=== PATIENT | female | born 1970 | race African-American/Black ===

== ENCOUNTER 2016-09-21 05:59 | Day surgery (SDC) | payer BC ==
[~2016-09-21] VITALS: Ht 172.7 cm; Wt 71.6 kg
[~2016-09-21 05:59] MED LIST: MOBIC7.5 MG PO
[2016-09-21 06:40] LABS: EOSINOPHIL (%) 1.3 % (0-5); EOSINOPHIL COUNT 0.1 K/uL (0-0.3); HEMATOCRIT 37.5 % (36.0-46.0); IMMATURE GRANULOCYTE (%) 0.2 % (0.0-0.7); IMMATURE GRANULOCYTE COUNT 0.1 K/uL; LYMPHOCYTE COUNT 1.2 K/uL (1.0-2.8); MCH 27.6 PG (29.0-34.0); MCHC 33.6 G/DL (30.0-36.0); MCV 82.2 FL (83-99); MEAN PLAT.VOLUME 10.2 uM^3 (9.5-12.4); MONOCYTE (%) 7.2 % (3-12); MONOCYTE COUNT 0.4 K/uL (0-0.8); NEUTROPHIL (%) 71.7 % (45-76); NEUTROPHIL COUNT 4.4 K/uL (1.8-6.4); PLATELET COUNT 221 K/uL (156-360); RBC DIS.WIDTH-CV 13.5 % (11.8-14.6); RBC DIS.WIDTH-SD 39.5 % (39-53); RED BLOOD COUNT 4.56 M/uL (3.80-5.20); WHITE BLOOD COUNT 6.1 K/uL (4.1-10.2)
[2016-09-21 07:01] VITALS: BP 138/70
[2016-09-21 14:30] VITALS: BP 111/56
[2016-09-21 19:28] VITALS: BP 105/52
[2016-09-21 23:33] VITALS: BP 115/52
[2016-09-22 03:50] VITALS: BP 100/54
[2016-09-22 07:15] LABS: HEMATOCRIT 29.4 % (36.0-46.0); MCH 27.2 PG (29.0-34.0); MCV 82.6 FL (83-99); MEAN PLAT.VOLUME 10.5 uM^3 (9.5-12.4); PLATELET COUNT 158 K/uL (156-360); RBC DIS.WIDTH-CV 13.9 % (11.8-14.6); RBC DIS.WIDTH-SD 42.1 % (39-53)
[2016-09-22 07:16] LABS: RED BLOOD COUNT 3.56 M/uL (3.80-5.20); WHITE BLOOD COUNT 9.6 K/uL (4.1-10.2)
[2016-09-22 08:24] VITALS: BP 105/52
== END 2016-09-22 12:54 | disposition home or self-care (01) ==
LOC: SDC 05:59 → 2SOUTH 10:45 → 2EASTP 10:45 → 2SOUTH 10:45 → SDC 11:14 → 2EASTP 14:17 → SDC 14:34 → 2EASTP 09-22 12:54
PROVIDERS: Obstetrics & Gynecology
DX: D25.9 Leiomyoma of uterus, unspecified (principal); N80.0 Endometriosis of uterus; N72 Inflammatory disease of cervix uteri; Z53.39 Other specified procedure converted to open procedure
CPT/HCPCS: 71020; 84702; 85025; 85027; 86850; 86900; 86901; 88307; 93005; G0378; J0131; J0690; J1100; J1170; J1885; J2250; J2270; J2405; J2710; J3010; J7120